=== PATIENT | male | born 1990 | race Two or more races ===

== ENCOUNTER 2022-02-13 14:08 | Emergency (ER) | payer OTHER ==
[~2022-02-13] VITALS: Ht 165.1 cm; Wt 59.0 kg
--- NOTE | 2022-02-13 15:14 | NUR ---
Medically cleared for booking. Discharged to [employer] custody in NO obvious distress NO acute changes Written and verbal after care instructions given.[employer] Officer verbalizes understanding of instruction.
[2022-02-13 15:18] VITALS: BP 119/69
== END 2022-02-13 15:19 | disposition home or self-care (01) ==
LOC: ER 14:11
DX: S30.811A Abrasion of abdominal wall, initial encounter (principal); F17.200 Nicotine dependence, unspecified, uncomplicated; Z59.00 Homelessness unspecified; W20.8XXA Other cause of strike by thrown, projected or falling object, initial encounter; Y93.89 Activity, other specified; Y92.89 Other specified places as the place of occurrence of the external cause; Y99.8 Other external cause status

== ENCOUNTER 2022-03-22 10:02 | Emergency (ER) | payer OTHER ==
[~2022-03-22] VITALS: Ht 172.7 cm; Wt 72.6 kg
[2022-03-22 10:11] VITALS: BP 118/75
[2022-03-22] MEDS ORDERED: SULF1TAB48 PO (10:27)
--- NOTE | 2022-03-22 10:38 | NUR ---
Pt medically cleared for incarceration. ACI given to [employer]-Officer Rissa
== END 2022-03-22 10:40 ==
LOC: ER 10:06
DX: L03.011 Cellulitis of right finger (principal); F17.200 Nicotine dependence, unspecified, uncomplicated; Z59.00 Homelessness unspecified; Z79.899 Other long term (current) drug therapy